=== PATIENT | male | born 1995 | race Two or more races ===

== ENCOUNTER → 2017-07-10 09:46 | Day surgery (SDC) | payer OTHER ==
[~2017-07-10 09:46] MED LIST: Buffered Lidocaine 0.9% SYRIN* 5 ML/SYR SYRINGE INTRADERM ONE; Buffered Lidocaine 0.9% SYRIN* 5 ML/SYR SYRINGE ONE; Bupivacaine 0.25% SDV* 30 ML ONE; Bupivacaine 0.5% SDV PF* 10-30ML VIAL ONE; Dexamethasone IV* 4 MG/ML 1 ML (4 MG) ONE; DiMENhydriNATE IV* 50 MG/ML VIAL IV PUSH PRN; EPINEPHRINE 1 MG/ML 1 ML VIAL ONE; Famotidine IV* 10 MG/ML 2 ML (20 mg) IV ONE; Famotidine IV* 10 MG/ML 2 ML (20 mg) ONE; KETAMINE HCL* 50 MG/ML 10 ML VIAL ONE; Ketorolac INJ* 30 MG/ML 1 ML VIAL ONE; Lidocaine 2% PF * 5 ML VIAL ONE; Midazolam* 1 MG/ML 10 ML VIAL (10 MG) ONE; Morphine INJ* 10 MG/ML 1 ML CARPUJECT ONE; Morphine INJ* 2 MG/ML 1 ML CARPUJECT IV PRN; Naloxone* 0.4 MG/ML 1 ML VIAL IV PRN; Ondansetron INJ* 2 MG/ML VIAL ONE; PROCHLORPERAZINE INJ 5 MG/ML 2 ML VIAL IV PRN; Propofol* 10 MG/ML 20 ML BTL IV PUSH ONE; Scopolamine 1.5 mg* PATCH TRANSDERM PRN; Scopolamine PATCH Remove* 1 NOTE MISC PATCH OFF ONE; ceFAZolin 2 GM PREMIX (*) 2 GM/50 ML BAG IVPB ONE; fentaNYL* 50 MCG/ML 2 ML VIAL (100 MCG VIAL) IV PRN; fentaNYL* 50 MCG/ML 2 ML VIAL (100 MCG VIAL) ONE; oxyCODONE/Acetamin 5/325 MG* TAB ONE
[2017-07-10] MEDS: oxyCODONE/Acetamin 5/325 MG* TAB PO PRN ×2 (14:52→15:58)
[2017-07-10 17:57] VITALS: BP 138/89
--- NOTE | 2017-07-13 15:30 | OP ---
DATE OF OPERATION: 07/10/17 - [facility] DATE OF : 89 SURGEON: Jere Elkins MD ASSISTANTS: LIZBETH Barajas; LIZBETH Rose. A physician assistant case manager was required for the length of the procedure for help with positioning, instrumentation, and closure. ANESTHESIOLOGIST: Jasbir Gannon MD ANESTHESIA: General anesthesia with LMA, interscalene block regional anesthesia. PRE-OP DIAGNOSES: 1. Recurrent instability left shoulder glenohumeral joint, anterior. 2. Left shoulder labrum tears, posteroinferior and possibly anteroinferior. 3. Left shoulder anteroinferior glenoid articular cartilage injury. 4. Ligamentous injury, left shoulder anterior and posterior inferior glenohumeral joint ligaments. POST-OP DIAGNOSES: 1. Recurrent instability left shoulder glenohumeral joint, anterior. 2. Left shoulder labrum tears, posteroinferior and anteroinferior and anterior. 3. Left shoulder anteroinferior glenoid articular cartilage injury, very small. 4. Ligamentous stretching injuries, left shoulder anterior and posterior inferior glenohumeral joint ligaments. OPERATIVE PROCEDURE: 1. Left shoulder arthroscopic anterior capsulolabral repair. 2. Left shoulder arthroscopic posterior capsulolabral repair. 3. Left shoulder arthroscopic debridement, small unstable articular cartilage, anteroinferior glenoid. INDICATIONS: The patient is a 21-year-old man, right-hand dominant, [employer] student, [employer], transfer from [employer] [facility] with a history of multiple prior left shoulder dislocations whose history of shoulder instability dates back to 2011. See my history and physical for full history. The patient responded insufficiently to nonoperative management. Describes a total of 5, at least, anterior left shoulder glenohumeral joint dislocations total. He also had some pain and some limitation in activities between these dislocation events. MRA of left shoulder demonstrated a posterior or more accurately posteroinferior labral tear and a small paralabral cyst at the 6 o'clock position. Some periosteal stripping anterior and some abnormality in the anteroinferior labrum as well as a small defect of articular cartilage about the anteroinferior aspect of the glenoid measured by the Radiology as 2.5 mm transverse x 5 mm cephalocaudal. The patient agreed for surgery. Discussed risks and potential complications of surgery including bleeding, infection, nearby blood vessel injury, shoulder pain, osteoarthritis, stiffness , recurrent instability, hardware complications, blood clot. ANTIBIOTICS: Ancef 2 g IV. IV FLUIDS: 1700 cc crystalloid. SPECIMEN: None. COMPLICATIONS: None. IMPLANTS: Four Mitek Nav and Nav GRYPHON suture anchors, each single loaded. ESTIMATED BLOOD LOSS: Minimal. DESCRIPTION OF PROCEDURE: In preoperative holding, the patient signed an operative consent. Operative extremity was marked in preoperative holding. I talked to the patient briefly about how I would as well evaluate and treat this superior labrum and biceps as needed intraoperatively and if treated, the patient would have an open biceps tenodesis. The patient went to the operating room and had an interscalene nerve block by Dr. Jasbir Gannon. The patient was placed supine on operating room table and then converted into the lateral decubitus position. Per Dr. Gannon' protocol, we did send positioning of the patient prior to LMA intubation. Lateral decubitus position with the left shoulder up. All bony prominences padded, axillary roll placed, rossi bag hardened. The left arm was placed in 15 pounds of longitudinal traction in the appropriate amount of flexion and abduction. LMA was applied. Some fine tuning of patient position was then performed. The left shoulder was prepped with ChloraPrep. The left shoulder was draped. Surgical time-out was performed. A spinal needle entered the left glenohumeral joint from posterior and 30 cc of normal saline was used. A posterior glenohumeral joint portal was then established using standard technique. A diagnostic arthroscopy was commenced. No loose bodies were visualized. No rotator cuff tendon tears of any involved tendons were appreciated. I visualized a subscapularis in multiple positions at the humeral head, posteriorly translated, internally and externally rotated. I visualized the biceps, no evidence of tearing. Likewise, no superior labral tear. The patient clearly had tearing of the posteroinferior labrum. There was also clear irregularity of the anterior labrum, although the labrum appeared closely apposed to the anterior rim of the articular cartilage of the glenoid. No significant defect appreciated of the anteroinferior glenoid at this time. The [employer] lateral traction device that had been applied to the table during patient positioning , was put into position and lateral traction to the left shoulder was applied and this was adjusted several times. I then placed an anterior inferior portal under direct visualization and placed a 7-mm Arthrex plastic cannula. This portal would afford me a good access to the anterior and inferior glenoid and labrum. Next, I placed my anterosuperior portal. I placed the arthroscope in that portal. I next probed the labrum circumferentially. There was a clear connection of labral tear from proximally the 10 o'clock to the 4:30 o'clock position, from anterior to anteroinferior to inferior to posteroinferior. While the anteroinferior labrum was apposed to the glenoid, there was clear tearing between the two and there was no connection between the two. Just some light debridement with an arthroscopic probe and then a liberator, revealed no clear connection between the labrum and the glenoid. Next, I freed up more aggressively the labrum along the length of the tear, mostly using the liberator but also using arthroscopic shaver. This freed up the labrum nicely such that I could see the subscapularis muscle belly fibers medial to the gap between the labrum and the glenoid. This would enable me to mobilize the labrum nicely to repair. I prepared the bone with the arthroscopic shaver to get a good bony healing surface. I next placed my first suture anchor, Mitek GRYPHON, from the anteroinferior portal to the 6 o'clock position just upon the face of the glenoid. This suture anchor like the others came double loaded and I removed 1 suture. I then passed a horizontal mattress stitch using Mitek IDEAL suture passers with 1 pass from the posterior portal and 1 pass from the anteroinferior portal. Given the patient's history of recurrent dislocations and his stretching on MRI , I made sure to obtain enough capsule in my bites to make this a very solid repair. I tied that stitch and it brought the capsule and labrum nicely to glenoid. This clearly tightened nicely the inferior pouch. It should be noted that I did not need to make any posterior portal after I applied the lateral traction, this was rare but was nice. Next, I placed my second anchor. I placed it posteroinferiorly in the rim of the glenoid. I placed a horizontal mattress stitch in the capsule and labrum. I next placed 2 suture anchors along the anterior rim of glenoid. The first was anteroinferior and I placed a horizontal mattress stitch. The second was more anterior and I placed a simple stitch. Prior to placing my suture anchors, I had debrided some slightly unstable articular cartilage, 1 to 2 mm at most. There was no significant deficit of articular cartilage at the anteroinferior glenoid as it had been protected based on preop MRI. After the 4 suture anchors had been placed, I evaluated my repair visualizing from the anterosuperior and the posterior portals. I was very happy with the repair. The labrum was apposed nicely to glenoid, and I certainly grabbed sufficient capsule with my labral stitches. Fluid and instruments were removed from the glenohumeral joint. The skin incisions were closed with figure-of-8 and 12 stitches using nylon 4-0 suture. It should be noted that to place my posteroinferior suture anchor, I used a fourth incision, and placed that suture anchor percutaneously through a fourth incision. This was to get the right angle of introduction to avoid any skiving. Dressings consisted of Xeroform, 4x4s, ABDs, and foam tape. Sling in abduction pillow. The patient was corrected into the supine position and awakened and the LMA was removed. DISPOSITION: The patient went home with a sling and abduction pillow. The patient was to receive Percocet as needed for pain and aspirin x2 weeks for DVT prophylaxis. The patient will start a physical therapy within 1 week of the operation. The patient was given a physical therapy prescription. The patient will be traveling home to [facility] and so may do physical therapy there before returning to campus to do physical therapy. The patient would normally follow up with me 10 to 14 days postoperative for wound checks. Since he will be in [facility], the patient will call my cell phone to check in around that time, 10 to 14 days postoperatively. He will go to his primary care physician for suture removal. He will then see me when he returns to campus in late July. [id number]/[facility] #: [id number] ROE
== END | disposition home or self-care (01) ==
LOC: OR 09:46
PROVIDERS: ATTEND Orthopaedic Surgery
DX: M25.312 Other instability, left shoulder (principal); M24.812 Other specific joint derangements of left shoulder, not elsewhere classified; G89.18 Other acute postprocedural pain
CPT/HCPCS: A9270-GY; J0690; J1100; J1885; J2250; J2270; J2405; J2704; J3010